=== PATIENT | female | born 1980 | race Hispanic/Latino ===

== ENCOUNTER 2017-04-29 09:59 | Emergency (ER) | payer MEDICAID ==
[2017-04-29 10:20] VITALS: RESP 20
[2017-04-29 10:32] VITALS: O2SAT 98
--- NOTE | 2017-04-29 11:47 | ED PDOC ---
HPI: Back Time Seen by Provider: 04/29/17 10:44 Chief Complaint (Nursing): Back Pain History Per: Patient History/Exam Limitations: no limitations Onset/Duration Of Symptoms: Sudden Onset (2 days ago) Current Symptoms Are (Timing): Still Present Full Body Front + Back: 1 - pain worse with movement no leg n/t/w no bowel or bladder retention or incontinence Quality Of Discomfort: Dull, Aching Severity: Moderate Previous Symptoms: None Associated Symptoms: None Exacerbating Factor(s): Nothing Additional History: also c/o of anterior right foot pain worse with bearing weight Additional History Per: Patient Past Medical History Reviewed: Historical Data, Nursing Documentation, Vital Signs Vital Signs: Last Vital Signs Temp 98.5 F 04/29/17 10:20 Pulse 81 04/29/17 10:20 Resp 20 04/29/17 10:20 BP 130/64 04/29/17 10:20 Pulse Ox 98 04/29/17 10:30 - Medical History PMH: Asthma - Family History Family History: States: Unknown Family Hx - Living Arrangements Living Arrangements: With Family - Social History Current smoker - smoking cessation education provided: No - Allergies Allergies/Adverse Reactions: Allergies Allergy/AdvReac Type Severity Reaction Status Date / Time No Known Allergies Allergy Verified 04/29/17 10:30 Review of Systems ROS Statement: Except As Marked, All Systems Reviewed And Found Negative Constitutional: Negative for: Fever, Chills Cardiovascular: Negative for: Chest Pain, Palpitations Gastrointestinal: Negative for: Nausea, Vomiting, Abdominal Pain Musculoskeletal: Positive for: Back Pain (low back pain), Foot Pain (r). Negative for: Neck Pain Neurological: Negative for: Weakness, Numbness, Altered Mental Status, Headache , Dizziness Physical Exam - Reviewed Nursing Documentation Reviewed: Yes Vital Signs Reviewed: Yes - Physical Exam Head Exam: Positive for: ATRAUMATIC, NORMAL INSPECTION, NORMOCEPHALIC Eye Exam: Positive for: Normal appearance, EOMI, PERRL Neck: Positive for: Normal, Painless ROM, Supple. Negative for: Decreased ROM, Limited ROM, Trachea Midline Cardiovascular/Chest: Positive for: Regular Rate, Rhythm, Chest Non Tender. Negative for: Edema, Gallop, Murmur, Bradycardia, Tachycardia Respiratory: Positive for: Normal Breath Sounds. Negative for: Decreased Breath Sounds, Accessory Muscle Use, Crackles, Rales, Rhonchi, Stridor, Wheezing Pulses-Dorsalis Pedis (L): 2+ Pulses-Dorsalis Pedis (R): 2+ Gastrointestinal/Abdominal: Positive for: Normal Exam, Bowel Sounds, Soft. Negative for: Tenderness Back: Positive for: Normal Inspection, Decreased ROM, Other (mild paraspinal tenderness). Negative for: L CVA Tenderness, R CVA Tenderness, Vertebral Tenderness Extremity: Positive for: Normal ROM, Tenderness (anterior foot full rom nml achilles nvi). Negative for: Pedal Edema, Calf Tenderness, Deformity, Swelling Neurologic/Psych: Positive for: Alert, precipitator operator II-XII, Oriented, Gait (steadu + ehl bl). Negative for: Motor/Sensory Deficits - ECG O2 Sat by Pulse Oximetry: 98 - Progress ED Course And Treament: lumbar spine 5 views no fx or dislocation no sts, pevlis one view no fx or dislocation no sts, right foot 3 views no fx or dislocation no sts. advise fu in clinic. pt leaves ambulatory and in good spirits. Re-evaluation Time: 12:51 Condition: Improved Disposition - Clinical Impression Clinical Impression: Low back pain, Foot pain, right - Patient ED Disposition Is Patient to be Admitted: No Counseled Patient/Family Regarding: Studies Performed, Diagnosis, Need For Followup - Disposition Referrals: [facility] [Outside] (2 to 3 days) Disposition: Routine/Home Disposition Time: 12:53 Condition: GOOD Instructions: Acute Low Back Pain (GEN), Foot Contusion (ED)
--- NOTE | 2017-04-29 13:51 | RAD ---
PROCEDURE: Radiographs of the pelvis. HISTORY: trauma COMPARISON: None. FINDINGS: BONES: Pelvic Bones: Unremarkable. Hips: Grossly unremarkable. JOINTS: Sacroiliac Joints: Unremarkable. Pubic Symphysis: Unremarkable. OTHER FINDINGS: None. IMPRESSION: No acute findings related to/accounting for the clinical presentation. Concordant results with the preliminary interpretation rendered by the emergency department physician procedure.
--- NOTE | 2017-04-29 13:51 | RAD ---
PROCEDURE: Radiographs of the Lumbar Spine. HISTORY: trauma COMPARISON: No prior. FINDINGS: BONES: Normal alignment. No listhesis. No fracture. DISC SPACES: Unremarkable. OTHER FINDINGS: None. IMPRESSION: No significant or acute findings to account for/ related to the clinical presentation. Concordant results with the preliminary interpretation rendered by the emergency department physician procedure.
--- NOTE | 2017-04-29 13:55 | RAD ---
PROCEDURE: Right Foot Radiographs. HISTORY: Trauma attention lateral aspect right foot cuboid region and medially 1st cuneiform COMPARISON: None. FINDINGS: BONES: Normal. No fracture. JOINTS: Normal. SOFT TISSUES: Normal. OTHER FINDINGS: None. IMPRESSION: No acute findings related to/accounting for the clinical presentation. Concordant results with the preliminary interpretation rendered by the emergency department physician procedure.
[2017-04-29 14:00] VITALS: BP 120/78; PULSE 78; TEMP 97.6
== END 2017-04-29 14:01 | disposition home or self-care (01) ==
LOC: H.ER 09:59
DX: M54.5 Low back pain (principal); S99.921A Unspecified injury of right foot, initial encounter; X50.9XXA Other and unspecified overexertion or strenuous movements or postures, initial encounter; Y92.89 Other specified places as the place of occurrence of the external cause; J45.909 Unspecified asthma, uncomplicated

== ENCOUNTER 2018-08-16 01:38 | Emergency (ER) | payer MEDICAID ==
[2018-08-16 02:35] LABS: BASO # 0.1 K/uL (0.0-0.2); BASO % 0.8 % (0.0-2.0); EOS # 0.2 K/uL (0.0-0.7); EOS % 1.4 % (0.0-4.0); HEMOGLOBIN 12.4 g/dL (12.0-16.0); LYMPH # 2.1 K/uL (1.0-4.3); LYMPH % 17.2 % (20.0-40.0); MEAN CELL VOLUME 82.8 fl (81.0-99.0); MEAN CORPUSCULAR HEMOGLOBIN 28.7 pg (27.0-31.0); MEAN CORPUSCULAR HGB CONC 34.6 g/dL (33.0-37.0); MEAN PLATELET VOLUME 8.5 fl (7.2-11.7); MONO # 0.8 K/uL (0.0-0.8); MONO % 6.4 % (0.0-10.0); NEUT # 9.3 K/uL (1.8-7.0); NEUT % 74.2 % (50.0-75.0); RBC 4.34 Mil/uL (3.80-5.20); RED CELL DISTRIBUTION WIDTH 13.1 % (11.5-14.5); WHITE BLOOD COUNT 12.5 K/uL (4.8-10.8)
[2018-08-16 02:40] LABS: SQUAMOUS EPITHIAL 1 /hpf (0-5); URINE BACTERIA MANY (<OCC); URINE BILIRUBIN NEGATIVE (NEGATIVE); URINE BLOOD MODERATE (NEGATIVE); URINE CLARITY CLOUDY (Clear); URINE COLOR YELLOW (YELLOW); URINE GLUCOSE (UA) NEG (Normal); URINE LEUKOCYTE ESTERASE LARGE Leu/uL (Negative); URINE PROTEIN 100 mg/dL (NEGATIVE); URINE UROBILINOGEN 0.2-1.0 mg/dL (0.2-1.0)
[2018-08-16 02:45] LABS: BLOOD UREA NITROGEN 12 mg/dl (7-17); CALCIUM 9.2 mg/dL (8.4-10.2); GFR NON-AFRICAN AMERICAN > 60
[2018-08-16] MEDS: levoFLOXacin 750 mg in D5W 150 ML BAG IVPB STA (04:30)
--- NOTE | 2018-08-16 04:47 | ED PDOC ---
HPI: General Adult Time Seen by Provider: 08/16/18 01:55 Chief Complaint (Nursing): Abdominal Pain Chief Complaint (Provider): Flank Pain and Dysuria History Per: Patient History/Exam Limitations: no limitations Onset/Duration Of Symptoms: Hrs, Worse Since Current Symptoms Are (Timing): Still Present Additional Complaint(s): 38 year old with PMHx of asthma presents to the ER for an evaluation of dysuria and right flank pain onset at 6pm yesterday. Patient states the symptoms continuously worsened. She denies nausea, vomiting, chills or hematuria. PMD: Unknown Past Medical History Reviewed: Historical Data, Nursing Documentation, Vital Signs Vital Signs: Last Vital Signs Temp 99.6 F 08/16/18 01:45 Pulse 87 08/16/18 01:45 Resp 17 08/16/18 01:45 BP 162/42 H 08/16/18 01:45 Pulse Ox 99 08/16/18 01:45 - Medical History PMH: Asthma - Family History Family History: States: Unknown Family Hx - Social History Current smoker - smoking cessation education provided: No Alcohol: None Drugs: Denies - Home Medications Home Medications: Ambulatory Orders Medication Instructions Recorded Levofloxacin [Levaquin] 750 mg PO DAILY 7 Days #7 tablet 08/16/18 - Allergies Allergies/Adverse Reactions: Allergies Allergy/AdvReac Type Severity Reaction Status Date / Time No Known Allergies Allergy Verified 04/29/17 10:30 Review of Systems ROS Statement: Except As Marked, All Systems Reviewed And Found Negative Constitutional: Negative for: Chills Gastrointestinal: Negative for: Nausea, Vomiting Genitourinary Female: Positive for: Dysuria. Negative for: Hematuria Musculoskeletal: Positive for: Other (Right flank pain) Psych: Negative for: Suicidal ideation (homicidal ideation) Physical Exam - Reviewed Nursing Documentation Reviewed: Yes Vital Signs Reviewed: Yes - Physical Exam Appears: Positive for: Non-toxic, No Acute Distress Head Exam: Positive for: ATRAUMATIC, NORMAL INSPECTION, NORMOCEPHALIC Skin: Positive for: Normal Color, Warm, Dry Eye Exam: Positive for: EOMI, Normal appearance, PERRL ENT: Positive for: Normal ENT Inspection Neck: Positive for: Normal, Painless ROM, Supple. Negative for: Decreased ROM Cardiovascular/Chest: Positive for: Regular Rate, Rhythm. Negative for: Murmur Respiratory: Positive for: Normal Breath Sounds. Negative for: Decreased Breath Sounds, Wheezing, Respiratory Distress Gastrointestinal/Abdominal: Positive for: Normal Exam, Soft. Negative for: Tenderness, Guarding, Rebound Back: Negative for: Normal Inspection (Right flank tenderness) Extremity: Positive for: Normal ROM. Negative for: Tenderness, Pedal Edema, Deformity Neurologic/Psych: Positive for: Alert, Oriented (x3). Negative for: Motor/Sensory Deficits - Laboratory Results Result Diagrams: 08/16/18 02:25 08/16/18 02:25 - ECG O2 Sat by Pulse Oximetry: 99 (RA) Pulse Ox Interpretation: Normal Medical Decision Making Medical Decision Making: Time: 224 Assessment: Patient is well appearing with normal vital signs Initial Impression: 38 year old female with UTI v. pyelonephritis less likely kidney stone Initial Plan: --Abdomen & Pelvis IV Contrast CT --BMP --ED Urine --ED Urine Dipstick --CBC w/ Differential --Levaquin 750mg --Toradol 30mg --Blood Culture --Urine Culture --Urinalysis --Reevaluation 644AM Patient has ascending UTI on CT, no pyelo Patient feeling much better, very well appearing Advised patient to followup with Dr. Andra Rosario Vitals stable Scribe Attestation: Documented by Zina Richard acting as a scribe for Rubens Ramirez MD Provider Scribe Attestation: All medical record entries made by the Scribe were at my direction and personally dictated by me. I have reviewed the chart and agree that the record accurately reflects my personal performance of the history, physical exam, medical decision making, and the department course for this patient. I have also personally directed, reviewed, and agree with the discharge instructions and disposition. Disposition - Clinical Impression Clinical Impression: Cystitis - Patient ED Disposition Is Patient to be Admitted: No - Disposition Referrals: Crhisti Sevilla MD [Medical Doctor] - Disposition: Routine/Home Disposition Time: 06:45 Condition: IMPROVED Prescriptions: Levofloxacin [Levaquin] 750 mg PO DAILY 7 Days #7 tablet Instructions: Acute Cystitis (DC) Forms: [facility] (Greek)
[2018-08-16] MEDS ORDERED: Iohexol 300 100 ML IJ ONE (05:35)
[2018-08-16 06:10] VITALS: BP 121/68; PULSE 68; TEMP 98.4
[2018-08-16 06:56] VITALS: RESP 16; O2SAT 98
--- NOTE | 2018-08-16 11:47 | CT ---
Date of service: 08/16/2018 PROCEDURE: CT Abdomen and Pelvis with contrast HISTORY: R flank pain, dysuria COMPARISON: None. TECHNIQUE: Contrast dose: 95 mL of Omnipaque 300 Radiation dose: Total exam DLP = 717.15 mGy-cm. This CT exam was performed using one or more of the following dose reduction techniques: Automated exposure control, adjustment of the mA and/or kV according to patient size, and/or use of iterative reconstruction technique. FINDINGS: LOWER THORAX: Unremarkable. LIVER: Unremarkable. No gross lesion or ductal dilatation. GALLBLADDER AND BILE DUCTS: Unremarkable. PANCREAS: Unremarkable. No gross lesion or ductal dilatation. SPLEEN: Unremarkable. ADRENALS: Unremarkable. No mass. KIDNEYS AND URETERS: Unremarkable. No hydronephrosis. No solid mass. VASCULATURE: Unremarkable. No aortic aneurysm. BOWEL: . No obstruction. APPENDIX: Medial to the cecal base there is trace fluid and some inflammatory like changes. A normal appearing appendix is not identified. Although clinically there is a presentation of urinary tract infection with white blood cells in the urine and a cystitis and some mild ascending right ureteral urothelial enhancement, the possibility of concomitant appendicitis given the pericecal appearance an a approximately 16 mm rim enhancing focus in this area (coronal series 601, image 38 surrounded by fluid here is noted.). This rim enhancing focus can sometimes simulate a collapsing high right ovarian follicular cyst cyst. However on this patient the right ovary appears inferior to this level probably at the axis series 3, image 139 level). PERITONEUM: There is a small amount of right pericecal free fluid present. No free air. LYMPH NODES: Unremarkable. No enlarged lymph nodes. BLADDER: The bladder is moderately distended. Bladder wall may be minimally thickened. No marked thickening appreciated. REPRODUCTIVE: As above. The uterus is slightly tipped towards the left. Identification left ovary is more problematic and may be high contain bordering the left uterine fundus BONES: No acute fracture. OTHER FINDINGS: None. IMPRESSION: No hydronephrosis or hydroureter. In this patient with a clinical presentation of cystitis and lab values to support that, the borderline minimally thickened bladder wall appearance is consistent with this; no marked bladder wall thickening seen. There is a some right urothelial apparent distal ureteral enhancement which may represent an ascending urinary tract infection. In close proximity with the distal right ureter and the medial cecum, there is fluid, and inflammatory changes. Here a 1.6 cm rim enhancing focus is also identified-this appears higher than expected for a collapsing right ovarian follicle. As no normal appearing appendix can be identified separate from it,-a concomitant acute appendicitis in addition with this clinical urinary tract infection presentation needs to be considered. Comments: Prior to dictating this report, the concern for a appendicitis was called to the emergency room and specifically discussed with the physician's editorial assistant Setu. There is concern for some discordance with the preliminary usarad report.
== END 2018-08-16 07:09 | disposition home or self-care (01) ==
LOC: H.ER 01:38
DX: N30.90 Cystitis, unspecified without hematuria (principal)
CPT/HCPCS: 74177; 80048; 81003; 81025; 85025; 87040; 87086; 87181; 96365; 96375; 99285; J1885; Q9967

== ENCOUNTER 2018-08-16 16:36 | Emergency (ER) | payer MEDICAID ==
[2018-08-16 16:44] VITALS: TEMP 98.3; O2SAT 100
[2018-08-16] MEDS ORDERED: Dextrose 5%/Lactated Ringer's 1,000 ML IV STA (17:02)
[2018-08-16 17:19] LABS: VENOUS BLOOD GAS PCO2 49 mmHg (40-60); VENOUS BLOOD GAS PO2 27 mm/Hg (30-55); VENOUS BLOOD PH 7.38 (7.32-7.43)
[2018-08-16 17:32] LABS: BASO # 0.1 K/uL (0.0-0.2); BASO % 0.8 % (0.0-2.0); EOS # 0.1 K/uL (0.0-0.7); EOS % 1.1 % (0.0-4.0); HEMOGLOBIN 12.9 g/dL (12.0-16.0); LYMPH % 17.1 % (20.0-40.0); MEAN CELL VOLUME 83.9 fl (81.0-99.0); MEAN CORPUSCULAR HEMOGLOBIN 28.3 pg (27.0-31.0); MEAN CORPUSCULAR HGB CONC 33.7 g/dL (33.0-37.0); MEAN PLATELET VOLUME 8.9 fl (7.2-11.7); MONO # 0.8 K/uL (0.0-0.8); MONO % 6.4 % (0.0-10.0); NEUT # 8.8 K/uL (1.8-7.0); NEUT % 74.6 % (50.0-75.0); RBC 4.56 Mil/uL (3.80-5.20); RED CELL DISTRIBUTION WIDTH 13.1 % (11.5-14.5); WHITE BLOOD COUNT 11.8 K/uL (4.8-10.8)
[2018-08-16] MEDS ORDERED: Iohexol 240 (50 ml) ONE (17:41)
[2018-08-16] MEDS: Iohexol 240 (50 ml) PO STA (17:43)
[2018-08-16 17:44] LABS: ALB/GLOB RATIO 1.1 (1.0-2.1); ALBUMIN 4.2 g/dL (3.5-5.0); ALT/SGPT 21 U/L (9-52); AST/SGOT 22 U/L (14-36); BLOOD UREA NITROGEN 11 mg/dl (7-17); CALCIUM 9.4 mg/dL (8.4-10.2); GFR NON-AFRICAN AMERICAN > 60; INR 1.1; PROTHROMBIN TIME 12.9 Seconds (9.8-13.1)
--- NOTE | 2018-08-16 17:44 | ED PDOC ---
HPI: Abdomen Time Seen by Provider: 08/16/18 16:46 Chief Complaint (Nursing): Abdominal Pain Chief Complaint (Provider): Abdominal Pain History Per: Patient History/Exam Limitations: no limitations Onset/Duration Of Symptoms: Hrs Location Of Pain/Discomfort: RLQ Associated Symptoms: denies: Fever, Nausea, Vomiting, Diarrhea, Constipation Additional Complaint(s): Nacho Bullard is a 38 year old female with a past medical history of asthma who is presenting to the ED for evaluation of progressively worsening abdominal pain onset 6 pm yesterday. Patient states that at 1 am this morning she presented to this ED and was diagnosed with UTI and discharged. However, she reports that she was called back for a CT demonstrating concern for appendicitis after official read by radiology. She adds that the pain has progressed from flank to right lower quadrant and has decreased in intensity but still persists. Patient also reports loss of appetite and mild dysuria but denies any nausea, vomiting, diarrhea, constipation, fevers, chills, urinary frequency, or hematuria. PMD: Christi Sevilla Past Medical History Reviewed: Historical Data, Nursing Documentation, Vital Signs Vital Signs: Last Vital Signs Temp 98.3 F 08/16/18 16:41 Pulse 92 H 08/16/18 16:41 Resp 18 08/16/18 16:41 BP 124/75 08/16/18 16:41 Pulse Ox 100 08/16/18 16:41 - Medical History PMH: Asthma - Surgical History Surgical History: No Surg Hx - Family History Family History: States: Unknown Family Hx - Social History Current smoker - smoking cessation education provided: No Alcohol: None Drugs: Denies - Home Medications Home Medications: Ambulatory Orders Medication Instructions Recorded RX: Ibuprofen [Motrin Tab] 600 mg PO Q8 PRN #60 tab 08/16/18 RX: Levofloxacin [Levaquin] 750 mg PO DAILY 7 Days #7 tablet 08/16/18 - Allergies Allergies/Adverse Reactions: Allergies Allergy/AdvReac Type Severity Reaction Status Date / Time No Known Allergies Allergy Verified 08/16/18 16:41 Review of Systems ROS Statement: Except As Marked, All Systems Reviewed And Found Negative Constitutional: Negative for: Fever, Chills Gastrointestinal: Positive for: Abdominal Pain. Negative for: Nausea, Vomiting, Diarrhea, Constipation Genitourinary Female: Positive for: Dysuria. Negative for: Frequency, Hematuria Physical Exam - Reviewed Nursing Documentation Reviewed: Yes Vital Signs Reviewed: Yes - Physical Exam Appears: Positive for: No Acute Distress Head Exam: Positive for: ATRAUMATIC, NORMOCEPHALIC Skin: Positive for: Warm, Dry Eye Exam: Positive for: EOMI, PERRL Gastrointestinal/Abdominal: Positive for: Soft, Tenderness (right lower quadrant tenderness with palpation ), Other (Negative psoas signs, negative obturation). Negative for: Mass, Guarding, Rebound Back: Negative for: L CVA Tenderness, R CVA Tenderness Extremity: Positive for: Normal ROM. Negative for: Deformity Lymphatic: Negative for: Adenopathy Neurologic/Psych: Positive for: Alert. Negative for: Motor/Sensory Deficits - Laboratory Results Result Diagrams: 08/16/18 17:05 08/16/18 17:05 - ECG O2 Sat by Pulse Oximetry: 100 (RA) Pulse Ox Interpretation: Normal Medical Decision Making Medical Decision Making: Time: 17:05 Impression: right lower quadrant pain, rule out appendicitits Plan: --Blood Type and Screen --VBG --CT Abd/Pelvis --CMP --CBC --Coags --Dextrose IV --Omnipaque 50 ml PO --Blood Culture CT Abd/Pelvis: IMPRESSION: 1. Normal Appendix with no evidence of appendicitis. 2. Findings consistent with recently ruptured or leaking right ovarian cyst. 3. Findings consistent with cystitis. Labs were reviewed, unremarkable. Results discussed with patient. Patient is medically stable and ready for discharge. Scribe Attestation: Documented byHilda acting as a scribe for Corry Bond MD. Provider Scribe Attestation: All medical record entries made by the Scribe were at my direction and personally dictated by me. I have reviewed the chart and agree that the record accurately reflects my personal performance of the history, physical exam, medical decision making, and the department course for this patient. I have also personally directed, reviewed, and agree with the discharge instructions and disposition. Disposition - Clinical Impression Clinical Impression: Ovarian cyst, UTI (urinary tract infection), Abdominal pain Counseled Patient/Family Regarding: Studies Performed, Diagnosis, Need For Followup, Rx Given - Disposition Referrals: [facility] [Outside] Disposition: Routine/Home Disposition Time: 18:30 Condition: STABLE Additional Instructions: CONTINUE ANTIBIOTICS PRESCRIBED TAKE IBUPROFEN FOR PAIN FOLLOW UP WITH YOUR DOCTOR OR CLINIC IN A WEEK FOR REEVALUATION Prescriptions: RX: Ibuprofen [Motrin Tab] 600 mg PO Q8 PRN #60 tab PRN Reason: Pain, Moderate (4-7) Instructions: Urinary Tract Infection, Adult (DC), Acute Abdomen (Belly Pain), Adult (DC), Ovarian Cyst (DC) Forms: [facility] ED School/Work Excuse
[2018-08-16 17:47] LABS: PARTIAL THROMBOPLASTIN TIME 28.2 Seconds (25.6-37.1)
[2018-08-16 21:06] VITALS: BP 130/75; PULSE 84; RESP 20
--- NOTE | 2018-08-17 11:54 | CT ---
Date of service: 08/16/2018 PROCEDURE: CT Abdomen and Pelvis with contrast HISTORY: RLQ pain r/o appendicitis COMPARISON: 08/16/2018. TECHNIQUE: CT scan of the abdomen and pelvis was performed without administration of intravenous contrast. Oral contrast was administered. Coronal and sagittal reformatted images were obtained. Radiation dose: Total exam DLP = 771.36 mGy-cm. This CT exam was performed using one or more of the following dose reduction techniques: Automated exposure control, adjustment of the mA and/or kV according to patient size, and/or use of iterative reconstruction technique. FINDINGS: LOWER THORAX: The visualized lungs are clear. LIVER: Normal in size. No gross lesion or ductal dilatation. GALLBLADDER AND BILE DUCTS: No calcified gallstones. PANCREAS: Normal in size. No gross lesion or ductal dilatation. SPLEEN: Normal in size. ADRENALS: No discrete nodule. KIDNEYS AND URETERS: Normal in size. No hydronephrosis or nephrolithiasis. VASCULATURE: No aortic aneurysm. BOWEL: The small bowel loops are normal in caliber. There is moderate amount of stool in the colon. No bowel dilatation or obstruction. No bowel wall thickening. APPENDIX: The normal caliber appendix with intraluminal air is identified at the base of the cecum. No evidence of inflammatory changes surrounding the appendix. PERITONEUM: There is a small amount of free fluid in the pelvis. No free air. LYMPH NODES: No enlarged lymph nodes. BLADDER: There is mild circumferential mural thickening of the urinary bladder wall. REPRODUCTIVE: In appearance the uterus is normal in size. There is a 2.2 x 2.0 cm complicated cyst in the right ovary. BONES: No acute fracture. Within normal limits for the patient's age. OTHER FINDINGS: None. IMPRESSION: 1. Normal appendix. No CT evidence for inflammatory changes in the right lower quadrant. 2. 2.2 cm complicated cyst in the right ovary and small amount of free fluid in the pelvis which may represent partial cyst rupture in the appropriate clinical setting. Correlation with pelvic ultrasound may be performed for better characterization if clinically indicated. 3. Redemonstration of known cystitis. A preliminary report was provided by [employer].
== END 2018-08-16 21:06 | disposition home or self-care (01) ==
LOC: H.ER 16:36
DX: N83.201 Unspecified ovarian cyst, right side (principal); N39.0 Urinary tract infection, site not specified; R10.31 Right lower quadrant pain
CPT/HCPCS: 74176; 80053; 82803; 85025; 85610; 85730; 86850; 86900; 87040; 99284; J7042; Q9966

== ENCOUNTER 2018-09-15 18:54 | Emergency (ER) | payer MEDICAID ==
[2018-09-15 19:01] VITALS: BP 147/88; PULSE 104; RESP 18; TEMP 98.4; O2SAT 100
--- NOTE | 2018-09-15 19:51 | ED PDOC ---
HPI: Psych/Substance Abuse Time Seen by Provider: 09/15/18 19:23 Chief Complaint (Nursing): Psychiatric Evaluation Chief Complaint (Provider): Psychiatric Evaluation History Per: Patient History/Exam Limitations: no limitations Onset/Duration Of Symptoms: Sudden Onset (prior to arrival) Current Symptoms Are (Timing): Still Present Additional Complaint(s): Nacho Bullard, a 38 year old female with a past medical history of asthma, presents to the ED for suicidal ideation. Patient reports she called 911 saying she "just wants to end it" due to multiple life stressors such as issues with ex- and busy schedule with children and has no support at home. She reports she had a restraining order on her , but it was recently lifted. The patient states she has no support system. PCP: Christi Valdivia Past Medical History Reviewed: Historical Data, Nursing Documentation, Vital Signs Vital Signs: Last Vital Signs Temp 98.4 F 09/15/18 18:57 Pulse 104 H 09/15/18 18:57 Resp 18 09/15/18 18:57 BP 147/88 09/15/18 18:57 Pulse Ox 100 09/15/18 18:57 - Medical History PMH: Asthma - Family History Family History: States: Unknown Family Hx - Home Medications Home Medications: Ambulatory Orders Medication Instructions Recorded RX: Ibuprofen [Motrin Tab] 600 mg PO Q8 PRN #60 tab 08/16/18 RX: Levofloxacin [Levaquin] 750 mg PO DAILY 7 Days #7 tablet 08/16/18 - Allergies Allergies/Adverse Reactions: Allergies Allergy/AdvReac Type Severity Reaction Status Date / Time No Known Allergies Allergy Verified 08/16/18 16:41 Review of Systems ROS Statement: Except As Marked, All Systems Reviewed And Found Negative Physical Exam - Reviewed Nursing Documentation Reviewed: Yes Vital Signs Reviewed: Yes - Physical Exam Appears: Positive for: Well, Non-toxic, No Acute Distress Head Exam: Positive for: ATRAUMATIC, NORMAL INSPECTION, NORMOCEPHALIC Skin: Positive for: Normal Color, Warm, DRY Eye Exam: Positive for: EOMI, Normal appearance, PERRL Neck: Positive for: Normal, Painless ROM Cardiovascular/Chest: Positive for: Regular Rate, Rhythm. Negative for: Murmur Respiratory: Positive for: Normal Breath Sounds. Negative for: Respiratory Distress Gastrointestinal/Abdominal: Positive for: Normal Exam. Negative for: Tenderness Back: Positive for: Normal Inspection Extremity: Positive for: Normal ROM. Negative for: Deformity - ECG O2 Sat by Pulse Oximetry: 100 (RA) Pulse Ox Interpretation: Normal Medical Decision Making Medical Decision Making: Time: 1935 Initial plan: --labs --EKG --Chest X-ray --UA Scribe Attestation: Documented by Italo Andrews, acting as a scribe for Sandra Carl PA-C. Provider Scribe Attestation: All medical record entries made by the Scribe were at my direction and personally dictated by me. I have reviewed the chart and agree that the record accurately reflects my personal performance of the history, physical exam, medical decision making, and the department course for this patient. I have also personally directed, reviewed, and agree with the discharge instructions and disposition. Disposition - Clinical Impression Clinical Impression: Depression - Patient ED Disposition Is Patient to be Admitted: Transfer of Care (turned over to TISHA Mckeon, pending crisis eval) Counseled Patient/Family Regarding: Studies Performed - Disposition Disposition: Transfer of Care (TISHA Mckeon, pending crisis eval) Disposition Time: 20:23 Condition: STABLE Forms: [employer] ([employer])
--- NOTE | 2018-09-15 20:16 | ED PDOC ---
- Laboratory Results Result Diagrams: 09/15/18 20:45 09/15/18 20:45 - ECG ECG: Positive for: Interpreted By Me ECG Rhythm: Positive for: Normal QRS, Sinus Rhythm Interpretation Of ECG: sinus, HR 89, no ischemic change. O2 Sat by Pulse Oximetry: 100 (RA) Medical Decision Making Medical Decision Making: Patient signed out to me by TISHA Carl pending crisis evaluation Disposition Discussed With : Sandra Dutton - Clinical Impression Clinical Impression: Adjustment disorder with depressed mood - POA Present On Arrival: None - Disposition Referrals: [facility] [Outside] Disposition: Routine/Home Disposition Time: 22:22 Condition: STABLE Additional Instructions: Please call 911 or return to ER if you are thinking about hurting yourself or anyone else. Forms: [employer] (Nepali) Print Language: SYRIAC
[2018-09-15 20:48] LABS: BARBITURATES, UR NEGATIVE (NEGATIVE); BENZODIAZEPINES, UR NEGATIVE (NEGATIVE); OPIATES, UR NEGATIVE (NEGATIVE); PHENCYCLIDINE, UR NEGATIVE (NEGATIVE)
[2018-09-15 20:48] LABS: BASO # 0.1 K/uL (0.0-0.2); BASO % 0.8 % (0.0-2.0); EOS # 0.2 K/uL (0.0-0.7); EOS % 1.6 % (0.0-4.0); HEMOGLOBIN 12.2 g/dL (12.0-16.0); LYMPH # 1.6 K/uL (1.0-4.3); LYMPH % 15.7 % (20.0-40.0); MEAN CELL VOLUME 84.3 fl (81.0-99.0); MEAN CORPUSCULAR HEMOGLOBIN 28.4 pg (27.0-31.0); MEAN CORPUSCULAR HGB CONC 33.7 g/dL (33.0-37.0); MEAN PLATELET VOLUME 8.4 fl (7.2-11.7); MONO # 0.5 K/uL (0.0-0.8); MONO % 5.2 % (0.0-10.0); NEUT # 7.6 K/uL (1.8-7.0); NEUT % 76.7 % (50.0-75.0); RBC 4.29 Mil/uL (3.80-5.20); RED CELL DISTRIBUTION WIDTH 13.3 % (11.5-14.5); WHITE BLOOD COUNT 9.9 K/uL (4.8-10.8)
[2018-09-15 20:52] LABS: SQUAMOUS EPITHIAL 7 /hpf (0-5); URINE BACTERIA RARE (<OCC); URINE BILIRUBIN NEGATIVE (NEGATIVE); URINE BLOOD NEGATIVE (NEGATIVE); URINE CLARITY SLIGHTY-CLOUDY (Clear); URINE COLOR YELLOW (YELLOW); URINE GLUCOSE (UA) NEG (Normal); URINE LEUKOCYTE ESTERASE NEG Leu/uL (Negative); URINE PROTEIN NEGATIVE (NEGATIVE); URINE UROBILINOGEN 0.2-1.0 mg/dL (0.2-1.0)
[2018-09-15 21:01] LABS: ALB/GLOB RATIO 1.3 (1.0-2.1); ALBUMIN 4.4 g/dL (3.5-5.0); ALT/SGPT 29 U/L (9-52); AST/SGOT 17 U/L (14-36); BLOOD UREA NITROGEN 9 mg/dl (7-17); GFR NON-AFRICAN AMERICAN > 60
--- NOTE | 2018-09-16 13:26 | CARD ---
APPROVED REPORT Date of service: 09/15/2018 EKG Measurement Heart [id number] <Conclusion> Normal sinus rhythm Normal Electrocardiogram
--- NOTE | 2018-09-16 16:59 | RAD ---
Date of service: 09/15/2018 HISTORY: psych COMPARISON: No prior. TECHNIQUE: Chest PA and lateral FINDINGS: LUNGS: No active pulmonary disease. PLEURA: No significant pleural effusion identified. No pneumothorax apparent. CARDIOVASCULAR: No aortic atherosclerotic calcification present. Normal cardiac size. No pulmonary vascular congestion. OSSEOUS STRUCTURES: No significant abnormalities. VISUALIZED UPPER ABDOMEN: Normal. OTHER FINDINGS: None. IMPRESSION: No acute cardiopulmonary disease appreciated.
== END 2018-09-15 22:40 | disposition home or self-care (01) ==
LOC: H.ER 18:54
DX: F43.21 Adjustment disorder with depressed mood (principal); J45.909 Unspecified asthma, uncomplicated

== ENCOUNTER 2019-03-02 12:15 | Emergency (ER) | payer MEDICAID ==
--- NOTE | 2019-03-02 12:51 | ED PDOC ---
HPI: Back Time Seen by Provider: 03/02/19 12:32 Chief Complaint (Nursing): Back Pain Chief Complaint (Provider): Back pain History Per: Patient, EMS History/Exam Limitations: no limitations Onset/Duration Of Symptoms: Mins Current Symptoms Are (Timing): Still Present Additional Complaint(s): 38 y/o female, with a history of asthma and cervical pain which she had epidural injection for 2 weeks, presents to the ER complaining of lower back pain after she fell at work. She states she went to pick something up and went to sit down in the chair but missed it. Patient reports she fell on her buttocks. Since the fall, she has not been able to walk and bilateral legs feel heavy. As per EMS, they found her on the floor to which they applied a c collar because they were unsure if she injured her neck. Patient denies neck pain, neck injury, LOC, head injury, or loss of voluntary urination or bowel movements. PMD: none provided Past Medical History Reviewed: Historical Data, Nursing Documentation, Vital Signs Vital Signs: Last Vital Signs Temp 98.3 F 03/02/19 12:21 Pulse 85 03/02/19 12:21 Resp 20 03/02/19 12:21 BP 146/83 03/02/19 12:21 Pulse Ox 97 03/02/19 12:21 Primary Care Provider: Non [facility] Provider, - Medical History PMH: Asthma Denies: Diabetes, Hepatitis, HIV, HTN, Seizures, Sexually Transmitted Disease - Surgical History Surgical History: No Surg Hx - Family History Family History: States: Unknown Family Hx - Home Medications Home Medications: Ambulatory Orders Medication Instructions Recorded Ibuprofen [Motrin Tab] 600 mg PO Q8 PRN #60 tab 08/16/18 Levofloxacin [Levaquin] 750 mg PO DAILY 7 Days #7 tablet 08/16/18 Cyclobenzaprine [Cyclobenzaprine 10 mg PO Q8H PRN #15 tab 03/02/19 HCl] Ibuprofen [Motrin Tab] 800 mg PO Q8H PRN #30 tab 03/02/19 traMADol [Ultram] 50 mg PO Q6H PRN #12 tab 03/02/19 - Allergies Allergies/Adverse Reactions: Allergies Allergy/AdvReac Type Severity Reaction Status Date / Time No Known Allergies Allergy Verified 08/16/18 16:41 Review of Systems ROS Statement: Except As Marked, All Systems Reviewed And Found Negative Musculoskeletal: Positive for: Back Pain. Negative for: Neck Pain (or neck i njury) Neurological: Negative for: Other (LOC) Physical Exam - Reviewed Nursing Documentation Reviewed: Yes Vital Signs Reviewed: Yes - Physical Exam Appears: Positive for: No Acute Distress Head Exam: Positive for: ATRAUMATIC, NORMOCEPHALIC Skin: Positive for: Normal Color, Warm, Dry Eye Exam: Positive for: Normal appearance Neck: Positive for: Normal, Painless ROM Cardiovascular/Chest: Positive for: Regular Rate, Rhythm Respiratory: Positive for: Normal Breath Sounds. Negative for: Wheezing, Respiratory Distress Pulses-Dorsalis Pedis (L): 2+ Pulses-Dorsalis Pedis (R): 2+ Pelvic Exam: Positive for: Other (Pelvis is stable) Back: Positive for: Other (Point tenderness to lumbar spine) Extremity: Positive for: Capillary Refill (unable to assess capillary refill of toes due to nail welsh), Other (Feet normal in color; sensation intact; on bilateral leg rising, patient has pain to the mid lower back) Neurological/Psych: Positive for: Awake, Alert, Normal Tone - Laboratory Results Urine POC: Negative - ECG O2 Sat by Pulse Oximetry: 97 (RA) Pulse Ox Interpretation: Normal Medical Decision Making Medical Decision Making: Initial Impression: Lower back pain Initial Plan: --Urine --Toradol 30mg IM --Flexeril 10mg PO --CT lumbar spine C-collar cleared as patient has no cervical tenderness or pain to her neck and has full ROM of her neck. 14:15 Upon reevaluation, patient has better ROM of lower extremities with some discomfort in the lower back. Offered further pharmacological therapies which patient is refusing at this time. Patient wants to wait for the CT scan report. 14:48 Upon reevaluation, patient ambulated slowly with assistance. Patient will be given Tramadol 50mg PO in the ER and will reassess for discharge home. 17:07 Patient states after Tramadol, pain is still present and has not improved. Patient is able to ambulate slowly with minimal assistance. No change in neuro exam. Case discussed with Dr. St who recommends giving Motrin for pain and reassess. 19:50 Patient reassessed at this time. Patient states pain has not improved. Patient offered admission for intractable back pain but refused as she has no one to take care of children at home. Patient states she wants to go home and will call her mother to help her out tonight. Prescription for Motrin 800mg, Flexeril, and Tramadol given. Patient given opioid education in regards to take as directed and that it can be addictive. With Flexeril, patient advised to not drive or operate heavy machinery due to side effect of drowsiness. Vital signs are stable with blood pressure of 136/78, pulse of 69, and O2 sat of 100%. Patient is stable for discharge and recommended to follow up with PMD within 1 week. Gave non pharmacological therapies. Return precautions discussed and patient demonstrates agreement and understanding of plan. 20:00 Patient ambulating without difficulty. Scribe Attestation: Documented by Deonte Moran acting as a scribe for Jessi Kenney NP. Provider Scribe Attestation: All medical record entries made by the Scribe were at my direction and personally dictated by me. I have reviewed the chart and agree that the record accurately reflects my personal performance of the history, physical exam, medical decision making, and the department course for this patient. I have also personally directed, reviewed, and agree with the discharge instructions and disposition. Disposition - Clinical Impression Clinical Impression: Back pain - Patient ED Disposition Is Patient to be Admitted: No Counseled Patient/Family Regarding: Diagnosis, Need For Followup, Rx Given - Disposition Referrals: Non [facility] Provider, [Primary Care Provider] - Disposition: Routine/Home Disposition Time: 18:42 Condition: IMPROVED Additional Instructions: Follow-up with PMD within 1 week for referral to Physical Therapy Prescriptions: Cyclobenzaprine [Cyclobenzaprine HCl] 10 mg PO Q8H PRN #15 tab PRN Reason: Muscle Spasm Ibuprofen [Motrin Tab] 800 mg PO Q8H PRN #30 tab PRN Reason: Pain, Moderate (4-7) traMADol [Ultram] 50 mg PO Q6H PRN #12 tab PRN Reason: Pain, Severe (8-10) Instructions: Low Back Pain in Adults, Back Exercises Forms: [employer] (Lithuanian), [facility] ED School/Work Excuse - POA Present On Arrival: None
--- NOTE | 2019-03-02 14:28 | CT ---
Date of service: 03/02/2019 PROCEDURE: CT Lumbar Spine without contrast HISTORY: fall COMPARISON: None available. TECHNIQUE: Axial computed tomography images were obtained of the lumbar spine without the use of intravenous contrast. Coronal and sagittal reformatted images were created and reviewed. Radiation dose: Total exam DLP = 611.67 mGy-cm. This CT exam was performed using one or more of the following dose reduction techniques: Automated exposure control, adjustment of the mA and/or kV according to patient size, and/or use of iterative reconstruction technique. FINDINGS: VERTEBRAE: Unremarkable. No fracture. Normal alignment. DISCS/SPINAL CANAL/NEURAL FORAMINA: L1-2: Limited disc bulge is appreciated posteriorly without prominent stenosis resulting. No neural foraminal stenosis bilaterally. L2-3: Posterior disc bulge flattens the ventral thecal sac without causing significant central stenosis. No neural foraminal stenosis bilaterally. L3-4: Posterior disc bulge combines with ligamentum flavum hypertrophy to result in a mild central canal stenosis but no significant neural foraminal stenosis bilaterally. L4-5: Dnru-mo-nnmcqubr central stenosis results from ligamentum flavum hypertrophy and moderate posterior disc bulge. Borderline bilateral neural foraminal stenosis. L5-S1: Unremarkable. No gross disc herniation throughout the exam. PARASPINAL SOFT TISSUES: Unremarkable. OTHER FINDINGS: None. IMPRESSION: Gross disc herniation or severe spinal stenosis. No bony spinal stenosis. Mild degenerative L3-4 and [id number] degenerative L4-5 central canal stenoses identified due to ligamentum flavum hypertrophy and posterior disc bulging.
--- NOTE | 2019-03-02 16:20 | RAD ---
Date of service: 03/02/2019 PROCEDURE: Radiographs of the Sacrum and Coccyx HISTORY: fall COMPARISON: None available. TECHNIQUE: Frontal and lateral views of the sacrum and coccyx. 4 views obtained. FINDINGS: BONES: Sacrum and coccyx unremarkable. No fracture or focal lesion. SACROILIAC JOINTS: Unremarkable. OTHER FINDINGS: None. IMPRESSION: Unremarkable radiographs of the sacrum and coccyx.
[2019-03-02 16:30] VITALS: PULSE 78; RESP 18; TEMP 98
[2019-03-02] MEDS ORDERED: Morphine 4 MG/ML VIAL IM STA (17:05)
[2019-03-02] MEDS ORDERED: Morphine 4 MG/ML VIAL ONE (17:12)
[2019-03-02 18:42] VITALS: BP 136/78
[2019-03-02 18:45] VITALS: O2SAT 97
== END 2019-03-02 19:05 | disposition home or self-care (01) ==
LOC: H.ER 12:15 → SUPCPDRO 12:15 → H.ER 19:05
DX: M54.5 Low back pain (principal); J45.909 Unspecified asthma, uncomplicated; M51.36 Other intervertebral disc degeneration, lumbar region; M48.061 Spinal stenosis, lumbar region without neurogenic claudication
CPT/HCPCS: 72131; 72220; 81025; 96372; 99283; J1885; J2270